=== PATIENT | male | born 1970 | race Caucasian/White ===

== ENCOUNTER 2017-07-08 11:34 | Day surgery (SDC) | payer MEDICAID ==
[2017-07-08] MEDS ORDERED: Propofol 200 MG/20 ML SDV ONE ×2 (11:39→12:52)
[2017-07-08] MEDS ORDERED: Sodium Chloride 0.9% 5 ML Syringe FLUSH PRN (12:30)
[2017-07-08] MEDS ORDERED: Lactated Ringers 1,000 ML IV SCH (12:30)
--- NOTE | 2017-07-08 12:40 | PCM.PN ---
- General Info Date of Service: 07/08/17 - Review of Systems Systems Review Comment:: 46-year-old male referred for upper endoscopy because of symptoms of sensation of a lump in his throat. He has noticed this for about a month. He denies significant dysphagia. I have discussed the proposed upper endoscopy with the patient. Indications and expectations are reviewed. He appears to understand and agrees to proceed accepting risks. - Patient Data Vitals - Most Recent: Last Vital Signs Temp 99 F 07/08/17 11:50 Pulse 73 07/08/17 11:50 Resp 12 07/08/17 11:50 BP 135/75 07/08/17 11:50 Pulse Ox 96 07/08/17 11:50 Weight - Most Recent: 122.47 kg Med Orders - Current: Current Medications Lactated Ringer's (Ringers, Lactated) 1,000 mls @ 50 mls/hr IV ASDIRECTED RUSSELL Last Admin: 07/08/17 12:12 Dose: 50 mls/hr Sodium Chloride (Syrex Flush) 5 ml FLUSH Q8HR PRN PRN Reason: Keep Vein Open Discontinued Medications Propofol (Diprivan 20 Ml) Confirm Administered Dose 200 mg .ROUTE .STK-MED ONE Stop: 07/08/17 11:40 - Problem List Review Problem List Initiated/Reviewed/Updated: Yes - My Orders Last 24 Hours: My Active Orders 07/07/17 15:33 Resuscitation Status Routine 07/08/17 12:30 Patient to Empty Bladder [RC] ASDIRECTED Peripheral IV Care [RC] . DIRECTED Verify Patient Consent Obtain [RC] ASDIRECTED Lactated Ringers [Ringers, Lactated] 1,000 ml IV ASDIRECTED Sodium Chloride 0.9% [Syrex Flush] 5 ml FLUSH Q8HR PRN Peripheral IV Insertion Adult [OM.PC] Routine 07/08/17 Breakfast Nothing Per Oral Diet [DIET] - Assessment Assessment:: Sensation of lump in throat - Plan Plan:: EGD
[2017-07-08] MEDS ORDERED: Propofol 200 MG/20 ML SDV IV ONE (12:43)
[2017-07-08] MEDS ORDERED: Glycopyrrolate 0.2 MG/ML 5 ML MDV IV ONE (12:43)
[2017-07-08] MEDS ORDERED: Lidocaine 2% 100 MG/5 ML Syringe IVPUSH ONE (12:43)
--- NOTE | 2017-07-08 13:13 | PCM.OPNOTE ---
- General Post-Op/Procedure Note Date of Surgery/Procedure: 07/08/17 Operative Procedure(s): EGD with Biopsy Findings: Moderate swelling of left arytenoid cartilage Moderate sized hiatal hernia Pre Op Diagnosis: Possible throat mass Post-Op Diagnosis: Hiatal Hernia. Swollen arytenoid Anesthesia Technique: MAC Primary Surgeon: Rashaad Last Pathology: biopsies of antrum Output, Urine Amount: 0 EBL in mLs: 2 Complications: None Condition: Good
--- NOTE | 2017-07-08 23:43 | PROC ---
PROVIDER: Rashaad Last MD REFERRING PROVIDER: KAITLIN Angulo PRE-PROCEDURE DIAGNOSIS: Possible lump in the throat and gastroesophageal reflux disease. POST-PROCEDURE DIAGNOSIS: Hiatal hernia and swollen arytenoid. PROCEDURE PERFORMED: Esophagogastroduodenoscopy with biopsy. INDICATIONS FOR SURGERY: This 46-year-old male has noticed sensation of a lump in his throat over the past month. This is intermittent and is not causing pain. He also has symptoms of acid reflux for which he takes omeprazole b.i.d. FINDINGS: The patient has a moderate-sized hiatal hernia. There is slight irregularity of the Z-line, but the mucosa of the distal esophagus does not appear to be severely inflamed. The remainder of the esophagus, stomach, and duodenum appeared normal. In the patient's throat, no foreign body is noted, but the arytenoid on the patient's right side appears moderately swollen. The surface appeared otherwise smooth and there was no indication of mass or growth on the surface. PROCEDURE: The patient was taken to the operating room. He was given intravenous sedation and his throat was topically anesthetized. The oral and hypopharynx were carefully examined. Vocal cords appeared normal, although the right arytenoid did appear enlarged compared to the left side. After carefully examining the throat area and finding no other abnormalities and no sign of foreign body, the cricopharyngeus was cannulated and the esophagus carefully examined. The scope was then advanced through the stomach and on into the duodenal where examination of the third portion was performed. After carefully examining the duodenum, the scope was withdrawn into the stomach where full examination including retroflexed examination of the fundus was performed. Biopsies were taken randomly of the antrum to rule out H pylori because of the patient's GERD symptoms. The GE junction was carefully examined and then the scope was withdrawn re-examining the esophagus. The scope was removed and the patient was taken from the operating room in satisfactory condition. ESTIMATED BLOOD LOSS: 2 mL. COMPLICATIONS: None. PROGNOSIS: Good. /[id number]/MODL
== END 2017-07-08 15:35 | disposition home or self-care (01) ==
LOC: KA.SDS 11:34
PROVIDERS: ATTEND Surgery
DX: K29.50 Unspecified chronic gastritis without bleeding (principal); K44.9 Diaphragmatic hernia without obstruction or gangrene; K21.9 Gastro-esophageal reflux disease without esophagitis; E78.5 Hyperlipidemia, unspecified; Z79.899 Other long term (current) drug therapy
CPT/HCPCS: J2704; J3490; J7120

== ENCOUNTER 2018-10-14 10:47 | Observation (INO) | payer MEDICAID ==
[2018-10-14] MEDS ORDERED: Ketorolac 60 MG/2 ML SDV IM ONE (11:00)
[2018-10-14] MEDS ORDERED: Diazepam 5 MG Tab PO ONE (11:01)
--- NOTE | 2018-10-14 11:14 | EDM.PDOC ---
ED HPI GENERAL MEDICAL PROBLEM - General Chief Complaint: Back Pain or Injury Stated Complaint: back pain Time Seen by Provider: 10/14/18 11:00 Source of Information: Reports: Patient, EMS, EMS Notes Reviewed History Limitations: Reports: No Limitations - History of Present Illness INITIAL COMMENTS - FREE TEXT/NARRATIVE: Patient is a 48-year-old gentleman who presents to the emergency department this morning via EMS secondary to low back pain. Patient states that yesterday during the day he felt low back discomfort but was able to ambulate and function during the day. He states that he wasn't lifting anything or specifically injured his back prior to pain. He said during the night it was difficult to get comfortable and sleep. Upon waking this morning he attempted to rise in the bed, but felt dizzy and nauseous secondary to pain. His therefore called EMS. Nausea and dizziness has resolved since. Patient admits to intermittent low back pain. Patient denies chest pain, shortness of breath, abdominal pain, nausea, vomiting, diarrhea, saddle anesthesia, bladder or bowel incontinence, testicular pain, or specific injury or insult. Onset: Sudden Duration: Hour(s): Location: Reports: Back Quality: Reports: Sharp Severity: Moderate Improves with: Reports: None Worsens with: Reports: Movement Context: Denies: Activity, Exercise, Lifting, Trauma Associated Symptoms: Reports: No Other Symptoms. Denies: Chest Pain, Fever/ Chills, Nausea/Vomiting, Shortness of Breath Lower Back Pain Score (Numeric/FACES): 10 - Related Data Allergies Allergy/AdvReac Type Severity Reaction Status Date / Time No Known Drug Allergies Allergy NKDA Verified 10/14/18 10:59 Home Meds: Home Meds Gabapentin [Neurontin] 300 mg PO TID 07/07/17 [History] Omeprazole 20 mg PO BIDAC 07/07/17 [History] atorvaSTATin Calcium [Atorvastatin Calcium] 10 mg PO DAILY 07/07/17 [History] Meloxicam [Mobic] 15 mg PO DAILY #30 tab 10/14/18 [Rx] Methocarbamol [Robaxin-750] 750 mg PO Q6HR #15 tablet 10/14/18 [Rx] Past Medical History Cardiovascular History: Reports: High Cholesterol Gastrointestinal History: Reports: GERD Neurological History: Reports: Neuropathy, Peripheral ED ROS GENERAL - Review of Systems Review Of Systems: ROS reveals no pertinent complaints other than HPI. Constitutional: Reports: No Symptoms HEENT: Reports: No Symptoms Respiratory: Reports: No Symptoms Cardiovascular: Reports: No Symptoms Endocrine: Reports: No Symptoms GI/Abdominal: Reports: No Symptoms : Reports: No Symptoms Musculoskeletal: Reports: Back Pain Skin: Reports: No Symptoms Neurological: Reports: No Symptoms Psychiatric: Reports: No Symptoms Hematologic/Lymphatic: Reports: No Symptoms ED EXAM,LOWER BACK PAIN/INJURY - Physical Exam Exam: See Below Exam Limited By: No Limitations General Appearance: Alert, WD/WN, No Apparent Distress Throat/Mouth: Normal Inspection, Normal Oropharynx, No Airway Compromise Head: Atraumatic, Normocephalic Neck: Normal Inspection, Supple, Non-Tender, Full Range of Motion Respiratory/Chest: No Respiratory Distress, Lungs Clear, Normal Breath Sounds, No Accessory Muscle Use, Chest Non-Tender Cardiovascular: Regular Rate, Rhythm, No Murmur GI/Abdominal: Normal Bowel Sounds, Soft, Non-Tender, No Organomegaly, No Distention, No Abnormal Bruit Back Exam: Decreased Range of Motion, Muscle Spasm, Paraspinal Tenderness. No: CVA Tenderness (L), CVA Tenderness (R) Extremities: Normal Inspection, No Pedal Edema, Other (Discomfort of lumbar spine with left lower extremity range of motion) Neurological: Alert, Normal Mood/Affect, Normal Dorsiflexion, Normal Plantar Flexion, No Motor/Sensory Deficits Psychiatric: Normal Affect, Normal Mood Skin Exam: Warm, Dry, Intact, Normal Color, No Rash Course - Orders/Labs/Meds Orders: Active Orders 24 hr Category Date Time Status Lumbar Spine 2 or 3V [CR] Stat Exams 10/14/18 11:01 Ordered Ketorolac [Toradol] Med 10/14/18 11:00 Once 60 mg IM ONETIME ONE diazePAM [Valium] Med 10/14/18 11:01 Once 5 mg PO ONETIME ONE - Radiology Interpretation Free Text/Narrative:: X-ray lumbar spine shows mild degenerative changes - Re-Assessments/Exams Free Text/Narrative Re-Assessment/Exam: 10/14/18 12:58 Patient afebrile, vital signs stable, pain much relieved. Patient able to sit up and ambulate. Patient will follow-up with PCP in 2 days for PT consideration. Departure - Departure Time of Disposition: 12:58 Disposition: Home, Self-Care 01 Condition: Good Clinical Impression: Muscle spasm of back Low back pain Qualifiers: Chronicity: acute Back pain laterality: bilateral Sciatica presence: without sciatica Qualified Code(s): M54.5 - Low back pain - Discharge Information Instructions: Pain Medicine Instructions, [id number], Back Exercises, Easy-to -Read, Musculoskeletal Pain, Back Injury Prevention, [id number], Acute Back Pain, Adult, Muscle Cramps and Spasms, [id number] Referrals: Izzy Gotti PA-C [Primary Care Provider] - Additional Instructions: Follow up with Izzy in 2 days. Return to emergency department sooner if symptoms continue or worsen. - My Orders Last 24 Hours: My Active Orders 10/14/18 11:00 Ketorolac [Toradol] 60 mg IM ONETIME ONE 10/14/18 11:01 Lumbar Spine 2 or 3V [CR] Stat diazePAM [Valium] 5 mg PO ONETIME ONE - Assessment/Plan Last 24 Hours: My Active Orders 10/14/18 11:00 Ketorolac [Toradol] 60 mg IM ONETIME ONE 10/14/18 11:01 Lumbar Spine 2 or 3V [CR] Stat diazePAM [Valium] 5 mg PO ONETIME ONE Assessment:: Low back pain Plan: Follow-up with PCP
[2018-10-14] MEDS ORDERED: Acetaminophen/oxyCODONE 325-5 MG Tab PO ONE (11:56)
--- NOTE | 2018-10-14 12:01 | CR ---
[id number] RAD/RAD Lumbar Spine 2-3V EXAM: AP AND LATERAL LUMBAR SPINE. INDICATION: Back pain COMPARISON: No previous similar exam is available for comparison. FINDINGS: No fracture or subluxation is seen. Mild marginal osteophyte is seen at multiple levels. This results in [id number] foraminal narrowing at multiple levels. The pedicles are intact. IMPRESSION: NO ACUTE PLAIN FILM ABNORMALITY. MILD DEGENERATIVE CHANGES. Michael Goel MD 10/14/18 1200 Thank you for allowing us to participate in the care of your patient.
[2018-10-14] MEDS ORDERED: Sodium Chloride 0.9% 10 ML Syringe FLUSH PRN (15:51)
[2018-10-14] MEDS ORDERED: Sodium Chloride 0.9% 1,000 ML IV ONE ×2 (15:51→17:10)
[2018-10-14] MEDS ORDERED: Ondansetron 4 MG/2 ML SDV IVPUSH ONE (15:58)
[2018-10-14 16:43] LABS: ANION GAP 18.6 mmol/L (5-15); CHLORIDE,CL 104 mmol/L (98-115); SODIUM,NA 140 mmol/L (136-145)
[2018-10-14] MEDS ORDERED: Sodium Chloride 0.9% 1,000 ML ONE (17:07)
--- NOTE | 2018-10-14 18:08 | CT ---
[id number] CT/CT Head WO IV EXAM: CT Head WO IV CLINICAL DATA: SEIZURE. COMPARISON STUDY: None FINDINGS: No intracranial hemorrhage, extra-axial fluid collection, mass, or acute ischemia. No hydrocephalus. Mild ethmoid mucosal thickening. Mastoid air cells middle ear cavities are clear. IMPRESSION: Normal examination of the brain. Mild ethmoid sinusitis. Michael Bowers MD 10/14/18 [id number] Thank you for allowing us to participate in the care of your patient.
[2018-10-14] MEDS: Gabapentin 300 MG Cap PO SCH (18:20)
[2018-10-14] MEDS: Omeprazole 20 MG Cap.CR PO SCH (18:20)
[2018-10-15] MEDS: Gabapentin 300 MG Cap PO SCH ×3 (07:52→19:33)
[2018-10-15] MEDS: Omeprazole 20 MG Cap.CR PO SCH ×2 (07:52→17:19)
[2018-10-15] MEDS: methylPREDNISolone Sodium Succinate 125 MG/2 ML SDV IVPUSH SCH ×2 (09:44→17:17)
[2018-10-15] MEDS ORDERED: Ondansetron 4 MG Tab.DIS PO PRN (10:25)
--- NOTE | 2018-10-15 11:23 | CT ---
[id number] CT/CT Lumbar Spine WO IV Exam: CT Lumbar Spine WO IV Clinical Data: BACK PAIN COMPARISON: CORRELATION IS MADE WITH YESTERDAY'S PLAIN FILM. FINDINGS: L5-S1: No abnormality is seen at this level. L4-L5: No abnormality is seen at this level. L3-L4: No abnormality is seen at this level. L2-L3: No abnormality is seen at this level. L1-L2: No abnormality is seen at this level. There are moderate degenerative facet changes bilaterally at all levels. There is no disc herniation or spinal stenosis. IMPRESSION: DEGENERATIVE FACET CHANGES. NO DISC HERNIATION OR SPINAL STENOSIS. NO SEVERE FORAMINAL NARROWING. Michael Goel MD 10/15/18 [id number] Thank you for allowing us to participate in the care of your patient.
[2018-10-15] MEDS ORDERED: Cyclobenzaprine 10 MG Tab PO PRN (11:29)
[2018-10-15] MEDS: atorvaSTATin 10 MG Tab PO SCH (12:09)
[2018-10-15] MEDS ORDERED: atorvaSTATin 10 MG Tab PO SCH (21:00)
[2018-10-16] MEDS: methylPREDNISolone Sodium Succinate 125 MG/2 ML SDV IVPUSH SCH ×3 (02:58→16:48)
[2018-10-16] MEDS: Omeprazole 20 MG Cap.CR PO SCH ×2 (06:34→16:46)
[2018-10-16] MEDS: Gabapentin 300 MG Cap PO SCH ×2 (08:03→11:45)
[2018-10-16] MEDS: atorvaSTATin 10 MG Tab PO SCH (08:03)
--- NOTE | 2018-10-16 08:38 | PN ---
10/15/2018 PATIENT NAME: LISSETTE KYLE HISTORY OF PRESENT ILLNESS: This is a 48-year-old gentleman who presented to the emergency room yesterday morning via EMS secondary to low back pain. Two days ago, the patient states that he developed low back discomfort and was able to ambulate or function during the day. He had not had any specific injury or trauma to his back and did not lift anything heavy. He reported during the night prior to presentation to the ER that he could not get comfortable. Upon waking yesterday morning, he attempted to rise in bed and felt dizzy and nauseated secondary to the pain. He was brought to the emergency room in no acute distress. He did have lumbar spine films, which were negative. The patient improved. He was discharged from the ER; however when he was entering his vehicle TV, he developed pain and spasm again in his low back. While sitting in the seat, the patient began convulsing with a grand mal seizure that lasted approximately 15 seconds. This was witnessed by one of the nurses. The patient was diaphoretic and unresponsive. He was returned to the emergency room. He was postictal for approximately 15 minutes and then began to respond appropriately. The patient's status improved. Apparently, this type of seizure occurred 5 years ago when the patient presented to the emergency room in [place] with similar low back pain. He was kept overnight at that time and had not had any activity since. The patient was originally admitted to [facility] even though the patient and his expressed to be followed by me. The patient has had no recurrent seizure activity. He continues to complain of low back pain to the point where he is unable to sit or stand. PHYSICAL EXAMINATION: VITAL SIGNS: His vital signs are stable. He is afebrile, pulse is 72 and regular, respirations 18, blood pressure 132/72. SKIN: Warm and dry to touch. HEART: Normal. LUNGS: Normal. MUSCULOSKELETAL: He does have muscular spasm palpated in his lower back with tenderness. Other maneuvers are difficult to assess due to the fact that the patient is bound to the bed at this time. IMPRESSION: 1. Low back pain, persistent. 2. Grand mal seizure witnessed in the ER with a previous seizure witnessed 5 years ago with the same presentation of low back pain. 3. Gastroesophageal reflux disease, on omeprazole. 4. Hypercholesterolemia, on statin therapy. PLAN: We did consider an MRI; however, the patient reported that he is unable to tolerate an MRI at all. He had one 5 years ago and he reports "it nearly drove me crazy." A CT of the lumbar spine was obtained, which shows moderate degenerative facet changes bilaterally at all levels. No disk herniation or spinal stenosis. No severe foraminal narrowing. I did start him on intravenous steroids to include Solu-Medrol 125 mg every 8 hours. He will be started on cyclobenzaprine 10 mg t.i.d. He will have a physical therapy evaluation. The changes were made to transfer the patient's care from [place] to myself/[facility]. We will entertain discharge tomorrow if the patient is better. If he is not, he may need another day or two of muscle relaxants, steroids, as well as physical therapy. He will need a Neurology consultation after discharge due to the fact that he did have a witnessed grand mal seizure. I have communicated all my findings with Dr. Charley Russo, and she agrees with my findings. /[id number]/MODL
--- NOTE | 2018-10-19 08:23 | DISCH ---
HISTORY: This is a 48-year-old male who was admitted through the emergency room on 10/14/2018, with low back pain and a witnessed grand-mal seizure when discharge was attempted. The patient has been seizure-free. Reportedly, the patient has had similar episode about 5 years ago, when he had low back pain. He is not on any anticonvulsants. Yesterday, the patient was so uncomfortable that he was unable to sit. We did start him on intravenous steroids and also muscle relaxants. PT was consulted for evaluation and treatment, and he has improved considerably. He is able to walk on his own now. He does localize some low back pain in the coccyx area. He is being discharged on oral steroids as well as muscle relaxants and anti-inflammatories. He is on GI protection. We did do a lumbar spine CT scan yesterday as he was unable to tolerate MRI in the past. It did show degenerative facet changes, no disk herniation or spinal stenosis and no severe foraminal narrowing. His back pain is being treated as musculoskeletal muscle spasm. The patient is ready for discharge. His prescriptions have already been sent to the pharmacy. PHYSICAL EXAMINATION: VITAL SIGNS: Temp is 98.6, pulse 70, respirations 16, blood pressure 110/60, and O2 saturation is 92%. SKIN: Warm and dry to touch. HEART AND LUNGS: Normal. MUSCULOSKELETAL: He does have some reproducible pain in the lumbar spine area with palpation. This is muscular in origin. He also has some physical characteristics consistent with muscular dystrophy in his hands and feet. This is a congenital problem. IMPRESSION: 1. Muscle spasm of the lumbar spine. This has improved with IV steroids as well as oral muscle relaxants. He will be sent home with muscle relaxants, non-steroidals as well as oral steroids. He is on GI protection. He will continue outpatient physical therapy. 2. Witnessed grand mal seizure. He has been seizure-free. However, he will need a Neurology consultation to follow up in regard to anticonvulsant treatment. 3. History of gastroesophageal reflux disease. This is stable. He is on omeprazole. 4. Hypercholesterolemia. He is on atorvastatin and we will continue this and his lipids will be monitored as an outpatient. 5. Congenital muscular dystrophy, mild. DISCHARGE INSTRUCTIONS: He was provided with discharge instructions. He will return to the clinic or the emergency room if his symptoms worsen. The patient is in agreement with the plan of care and so is his . I will follow up with him on 10/22/2018, in the [facility]. I have also communicated all of my findings with Dr. Charley Russo, and she agrees with the treatment plan. /[id number]/MODL MTDD
== END 2018-10-16 17:20 | disposition home or self-care (01) ==
LOC: KA.ED 10:47 → KA.MS 16:59
PROVIDERS: ADMIT Physician Assistant Surgical
DX: M62.830 Muscle spasm of back (principal); G40.409 Other generalized epilepsy and epileptic syndromes, not intractable, without status epilepticus; E78.00 Pure hypercholesterolemia, unspecified; K21.9 Gastro-esophageal reflux disease without esophagitis; Z79.1 Long term (current) use of non-steroidal anti-inflammatories (NSAID); Z79.899 Other long term (current) drug therapy
CPT/HCPCS: 36415; 70450; 72100; 72131; 80053; 85025; 85651; 96361; 96372; 96374; 96375; 96376; 97110-GP; 97140-GP; 97162-GP; 99285-25; A9270-GY; G0378; J1885; J2405; J2930; J7030